=== PATIENT | male | born 2000 | race African-American/Black ===

== ENCOUNTER 2021-01-22 15:35 | Emergency (ER) | payer BC, OTHER ==
[2021-01-22 16:02] VITALS: BP 118/63; PULSE 63; TEMP 98.3; BMI 22.4
[2021-01-22] MEDS ORDERED: ALBUTEROL SO4 2.5/IPRATROPIUM 0.5 INH SOL 3 ML VIAL.NEB. NEB ONE ×2 (16:40→17:08)
[2021-01-22] MEDS ORDERED: MAG HYDROX/AL HYDROX/SIMETH 30 ML UNIT-DOSE CUP PO ONE (16:46)
[2021-01-22] MEDS ORDERED: FAMOTIDINE 20 MG TABLET PO ONE (16:46)
[2021-01-22] MEDS ORDERED: SUCRALFATE 1 GM/10 ML UNIT DOSE CUPS PO ONE (16:48)
[2021-01-22] MEDS ORDERED: KETOROLAC TROMETHAMINE 15 MG/ML VIAL IVPUSH ONE (16:48)
[2021-01-22] MEDS ORDERED: SODIUM CHLORIDE 0.9% 500 ML INFUS.BAG IV ONE (17:05)
[2021-01-22] MEDS ORDERED: FAMOTIDINE 20 MG TABLET ONE (17:08)
[2021-01-22] MEDS ORDERED: SUCRALFATE 1 GM TABLET (FP) ONE (17:08)
[2021-01-22] MEDS ORDERED: KETOROLAC TROMETHAMINE 30 MG/1 ML VIAL ONE ×2 (17:08→17:48)
[2021-01-22] MEDS ORDERED: MAG HYDROX/AL HYDROX/SIMETH 30 ML UNIT-DOSE CUP ONE (17:08)
[2021-01-22 18:00] LABS: BASO % 0.4 % (0-2.0); EOS % 1.7 % (0-4.5); HEMATOCRIT 41.5 % (35.4-49); HEMOGLOBIN 13.6 GM/dL (11.7-16.9); LYMPH % 17.5 % (8-40); MCH 26.8 pg (25.7-33.7); MCHC 32.8 g/dl (32.0-35.9); MEAN CELL VOLUME 81.8 fl (80-96); MEAN PLT VOLUME 9.8 fl (7.5-11.1); NEUT % 73.4 % (42.8-82.8); PLATELET COUNT 176 10^3/uL (134-434); RBC 5.08 M/mm3 (4.00-5.60); RDW 14.4 % (11.9-15.9); WHITE BLOOD COUNT 11.3 K/mm3 (4.0-10.0)
[2021-01-22 18:20] LABS: CALCIUM 9.3 mg/dL (8.5-10.1)
[2021-01-22 18:21] LABS: ALBUMIN 4.1 g/dl (3.4-5.0); BLOOD UREA NITROGEN 5.4 mg/dL (7-18)
[2021-01-22 18:23] LABS: BILIRUBIN,DIRECT 0.1 mg/dL (0.0-0.2)
[2021-01-22 18:24] LABS: CREATININE 0.9 mg/dL (0.55-1.3)
[2021-01-22 18:25] LABS: BILIRUBIN,TOTAL 0.5 mg/dL (0.2-1); TOT PROT 7.8 g/dl (6.4-8.2)
== END 2021-01-22 20:27 | disposition home or self-care (01) ==
LOC: JER 15:35
PROC: 3E0F7GC Introduction of Other Therapeutic Substance into Respiratory Tract, Via Natural or Artificial Opening (ICD-10-PCS; principal; 2021-01-22)
PROC: 3E0333Z Introduction of Anti-inflammatory into Peripheral Vein, Percutaneous Approach (ICD-10-PCS; 2021-01-22)
DX: R11.2 Nausea with vomiting, unspecified (principal); R19.7 Diarrhea, unspecified; R05.1 Acute cough
CPT/HCPCS: 36415; 71045-TC-FY; 80053; 82248; 83690; 85025; 99285-25

== ENCOUNTER 2021-07-16 15:53 | Emergency (ER) | payer BC ==
[2021-07-16 16:04] VITALS: BMI 22.4
[2021-07-16] MEDS ORDERED: SODIUM CHLORIDE 1,000 ML IV STA (16:52)
[2021-07-16] MEDS ORDERED: FAMOTIDINE 20 MG/50 ML IVPB 20 MG/50 ML MG IVPB ONE ×2 (16:57→17:06)
[2021-07-16 17:35] LABS: EOS % 0.6 % (0-4.5); HEMATOCRIT 43.2 % (35.4-49); HEMOGLOBIN 13.9 GM/dL (11.7-16.9); LYMPH % 18.7 % (8-40); MCH 26.8 pg (25.7-33.7); MCHC 32.2 g/dl (32.0-35.9); MEAN CELL VOLUME 83.3 fl (80-96); MEAN PLT VOLUME 10.6 fl (7.5-11.1); MONO % 7.4 % (3.8-10.2); NEUT % 72.3 % (42.8-82.8); PLATELET COUNT 153 10^3/uL (134-434); RBC 5.19 M/mm3 (4.00-5.60); RDW 14.1 % (11.9-15.9); WHITE BLOOD COUNT 8.5 K/mm3 (4.0-10.0)
[2021-07-16] MEDS ORDERED: LACTULOSE 20 GM/30 ML UDC (FOR ORAL USE ONLY) PO ONE (17:39)
[2021-07-16] MEDS ORDERED: MAG HYDROX/AL HYDROX/SIMETH 30 ML UNIT-DOSE CUP PO ONE (17:39)
[2021-07-16] MEDS ORDERED: POLYETHYLENE GLYCOL (HEALTHYLAX) 3350 17 GM PACKET PO ONE (17:40)
[2021-07-16 17:46] LABS: PH,URINE 5.5 (5.0-8.0); URINE APPEARANCE CLEAR; URINE BILIRUBIN NEGATIVE (NEGATIVE); URINE COLOR YELLOW; URINE GLUCOSE (UA) NEGATIVE (NEGATIVE); URINE KETONE NEGATIVE (NEGATIVE); URINE LEUK ESTERASE NEGATIVE (NEGATIVE); URINE NITRITE NEGATIVE (NEGATIVE); URINE PROTEIN NEGATIVE (NEGATIVE); URINE UROBILINOGEN 0.2 mg/dL (0.2-1.0)
[2021-07-16 17:59] LABS: CALCIUM 10.1 mg/dL (8.5-10.1)
[2021-07-16 18:00] LABS: ALBUMIN 4.9 g/dl (3.4-5.0); BLOOD UREA NITROGEN 10.4 mg/dL (7-18)
[2021-07-16] MEDS ORDERED: POLYETHYLENE GLYCOL (HEALTHYLAX) 3350 17 GM PACKET ONE (18:00)
[2021-07-16] MEDS ORDERED: MAG HYDROX/AL HYDROX/SIMETH 30 ML UNIT-DOSE CUP ONE (18:01)
[2021-07-16] MEDS ORDERED: LACTULOSE 20 GM/30 ML UDC (FOR ORAL USE ONLY) ONE (18:01)
[2021-07-16 18:03] LABS: CREATININE 1.1 mg/dL (0.55-1.3)
[2021-07-16 18:04] LABS: BILIRUBIN,TOTAL 1.1 mg/dL (0.2-1)
[2021-07-16 18:05] LABS: TOT PROT 7.9 g/dl (6.4-8.2)
[2021-07-16 18:56] VITALS: BP 122/74; PULSE 80; TEMP 98
[2021-07-17] MEDS ORDERED: POLYETHYLENE GLYCOL (HEALTHYLAX) 3350 17 GM PACKET PO ONE (17:40)
== END 2021-07-16 18:55 | disposition home or self-care (01) ==
LOC: JER 15:53
PROC: 3E033GC Introduction of Other Therapeutic Substance into Peripheral Vein, Percutaneous Approach (ICD-10-PCS; principal; 2021-07-16)
DX: R10.33 Periumbilical pain (principal); K59.00 Constipation, unspecified
CPT/HCPCS: 36415; 74019-TC-FY; 80053; 81003; 83690; 85025; 87086; 99284-25

== ENCOUNTER 2022-01-07 00:25 | Emergency (ER) | payer BC, OTHER ==
[2022-01-07 00:47] VITALS: BP 111/65; PULSE 91; RESP 20; TEMP 97.6; BMI 23.0
[2022-01-07] MEDS ORDERED: LIDOCAINE 5% TOPICAL PATCH TP ONE (01:35)
[2022-01-07] MEDS ORDERED: ACETAMINOPHEN 325 MG TABLET (FP) PO ONE (01:35)
[2022-01-07] MEDS ORDERED: ACETAMINOPHEN 325 MG TABLET (FP) ONE (01:37)
[2022-01-07] MEDS ORDERED: LIDOCAINE 5% TOPICAL PATCH ONE (01:37)
[2022-01-07] MEDS ORDERED: LIDOCAINE PATCH REMOVAL MC ONE (14:00)
== END 2022-01-07 05:00 | disposition home or self-care (01) ==
LOC: JER 00:25
DX: S46.911A Strain of unspecified muscle, fascia and tendon at shoulder and upper arm level, right arm, initial encounter (principal); V49.40XA Driver injured in collision with unspecified motor vehicles in traffic accident, initial encounter
CPT/HCPCS: 70450-TC; 72125-TC; 99284-25

== ENCOUNTER 2022-09-03 19:41 | Emergency (ER) | payer BC, OTHER ==
[2022-09-03 19:59] VITALS: BP 126/74; PULSE 126; RESP 18; TEMP 98.8; BMI 23.0
[2022-09-03] MEDS ORDERED: ACETAMINOPHEN 500 MG TABLET (FP) PO ONE (19:59)
[2022-09-03] MEDS ORDERED: ACETAMINOPHEN 500 MG TABLET (FP) ONE (20:06)
== END 2022-09-03 20:54 | disposition home or self-care (01) ==
LOC: FER 19:41
DX: S09.90XA Unspecified injury of head, initial encounter (principal); Y04.0XXA Assault by unarmed brawl or fight, initial encounter; Y93.61 Activity, american tackle football
CPT/HCPCS: 70450-TC; 72125-TC; 99284-25

== ENCOUNTER 2022-12-31 06:25 | Emergency (ER) | payer OTHER, BC ==
[2022-12-31 06:41] VITALS: RESP 18; BMI 23.7
[2022-12-31 08:51] VITALS: BP 114/73; PULSE 59; TEMP 97.9
== END 2022-12-31 09:08 | disposition home or self-care (01) ==
LOC: JER 06:25
DX: M79.602 Pain in left arm (principal); R53.1 Weakness; V43.52XA Car driver injured in collision with other type car in traffic accident, initial encounter; Y92.410 Unspecified street and highway as the place of occurrence of the external cause
CPT/HCPCS: 99282-25